=== PATIENT | female | born 1950 ===

== ENCOUNTER 2016-12-19 12:28 | Day surgery (SDC) | payer MEDICARE ==
[2016-12-19 13:06] VITALS: BMI 28.5
--- NOTE | 2016-12-19 13:16 | CP.SDSHP ---
Same Day Surgery H & P - History Proposed Procedure: colonoscopy - Previous Medical/Surgical History Cardiac: Hypertension Endocrine/Metabolic: Diabetes - Allergies Allergies: Allergies No Known Allergies Allergy (Verified 12/19/16 13:05) - Date & Time Date: 12/19/16 Time: 13:16 Short Stay Discharge - Short Stay Discharge Admitting Diagnosis/Reason for Visit: SCREENING Disposition: HOME/ ROUTINE
[2016-12-19] MEDS ORDERED: Lidocaine Hydrochloride 5 ML INJ ONE (14:58)
[2016-12-19] MEDS ORDERED: Propofol 10 mg/ml Inj (20 ML) ONE (14:58)
[2016-12-19 15:58] VITALS: TEMP 97.8
[2016-12-19 15:59] VITALS: O2SAT 100
[2016-12-19 16:37] VITALS: PULSE 78
[2016-12-19 16:38] VITALS: BP 128/68; RESP 14
== END 2016-12-19 16:25 | disposition home or self-care (01) ==
LOC: C.ENDO 12:28
PROVIDERS: ATTEND Colon & Rectal Surgery
DX: Z12.11 Encounter for screening for malignant neoplasm of colon (principal); K64.8 Other hemorrhoids; I10 Essential (primary) hypertension; E11.9 Type 2 diabetes mellitus without complications
CPT/HCPCS: 45378; 82948; J2704

== ENCOUNTER 2017-10-30 01:07 | Emergency (ER) | payer MEDICARE ==
[2017-10-30 01:07] VITALS: BMI 28.5
--- NOTE | 2017-10-30 01:36 | C.PDOC ---
History Of Present Illness 66 year old female presents to the ED for evaluation of headache and feeling nervous earlier today. Patient reports that her blood pressure is high. She denies fever, chills. Chief Complaint (Nursing): High Blood Pressure History Per: Patient History/Exam Limitations: no limitations Onset/Duration Of Symptoms: Hrs Current Symptoms Are (Timing): Still Present Additional History Per: Patient Past Medical History Reviewed: Historical Data, Nursing Documentation, Vital Signs Vital Signs: Last Vital Signs Temp 98 F 10/30/17 01:49 Pulse 68 10/30/17 01:49 Resp 19 10/30/17 01:49 BP 116/70 10/30/17 01:49 Pulse Ox 100 10/30/17 01:51 - Medical History PMH: Anemia, Gastritis, HTN, Hypercholesterolemia Denies: Fractures, Chronic Kidney Disease Surgical History: No Surg Hx Family History: States: Unknown Family Hx - Social History Hx Alcohol Use: No Hx Substance Use: No Review Of Systems Constitutional: Positive for: Other (feeling nervous, high blood pressure ) Neurological: Positive for: Headache Physical Exam - Physical Exam Appears: Non-toxic, No Acute Distress, Other (nervous ) Skin: Normal Color, Warm, Dry Head: Tenderness (mild, to posterior scalp ) Eye(s): bilateral: Normal Inspection Oral Mucosa: Moist Neck: Supple Chest: Symmetrical, No Deformity, No Tenderness Cardiovascular: Rhythm Regular, No Murmur Respiratory: Normal Breath Sounds, No Rales, No Rhonchi, No Wheezing Extremity: Normal ROM, Capillary Refill (less than 2 seconds ) Neurological/Psych: Oriented x3, Normal Speech, Normal Cognition, Other (no focal deficits ) Gait: Steady ED Course And Treatment - Laboratory Results Result Diagrams: 10/30/17 01:48 10/30/17 01:48 O2 Sat by Pulse Oximetry: 100 (on RA) Pulse Ox Interpretation: Normal Progress Note: Bloodwork ordered and reviewed. Ativan IVP and Toradol IVP administered. Patient's vitals have improved to 138/70. Disposition - Disposition Referrals: Andrew Grossman MD [Family Provider] - Disposition Time: 02:30 Condition: STABLE Forms: [facility] (Bhutanese) - Clinical Impression Clinical Impression: Hypertension - Scribe Statement The provider has reviewed the documentation as recorded by the Scribe (Mame Gaytan) Provider Attestation: All medical record entries made by the Scribe were at my direction and personally dictated by me. I have reviewed the chart and agree that the record accurately reflects my personal performance of the history, physical exam, medical decision making, and the department course for this patient. I have also personally directed, reviewed, and agree with the discharge instructions and disposition.
[2017-10-30 01:51] LABS: BASO # 0.1 K/uL (0.0-0.2); BASO % 0.8 % (0.0-2.0); EOS # 0.2 K/uL (0.0-0.7); EOS % 3.1 % (0.0-4.0); HEMOGLOBIN 12.5 g/dL (11.0-16.0); LYMPH # 3.6 K/uL (1.0-4.3); LYMPH % 50.3 % (20.0-40.0); MEAN CELL VOLUME 89.1 fL (81.0-99.0); MEAN CORPUSCULAR HEMOGLOBIN 30.2 pg (27.0-31.0); MEAN CORPUSCULAR HGB CONC 33.9 g/dL (33.0-37.0); MEAN PLATELET VOLUME 8.3 fL (7.2-11.7); MONO # 0.4 K/uL (0.0-0.8); MONO % 6.2 % (0.0-10.0); NEUT # 2.8 K/uL (1.8-7.0); NEUT % 39.6 % (50.0-75.0); RBC 4.15 Mil/uL (3.80-5.20); RED CELL DISTRIBUTION WIDTH 13.5 % (11.5-14.5); WHITE BLOOD COUNT 7.1 K/uL (4.8-10.8)
[2017-10-30 02:03] LABS: ALB/GLOB RATIO 1.2 (1.0-2.1); ALT/SGPT 29 U/L (9-52); AST/SGOT 28 U/L (14-36); BLOOD UREA NITROGEN 20 mg/dL (7-17); CALCIUM 9.4 mg/dl (8.6-10.4); GFR AFRICAN-AMERICAN > 60; GFR NON-AFRICAN AMERICAN > 60
[2017-10-30 02:46] VITALS: BP 112/65; PULSE 84; RESP 18; TEMP 97.7; O2SAT 99
== END 2017-10-30 02:48 | disposition home or self-care (01) ==
LOC: SUPCPDRO 01:07 → C.ER 01:07
DX: I10 Essential (primary) hypertension (principal)
CPT/HCPCS: 80053; 85025; 96374; 96375; 99284; J1885; J2060

== ENCOUNTER 2017-11-04 17:53 | Emergency (ER) | payer MEDICARE ==
[2017-11-04 17:53] VITALS: BMI 28.5
--- NOTE | 2017-11-04 18:24 | C.PDOC ---
History Of Present Illness 67 y/o female presents to the ED complaining of palpitations and anxiety, onset this morning. She was seen here on 10/30 at which time work-up was negative. Of note, patient was started on Lexapro 2 days ago with good compliance. She reports having episodes of anxiety with palpitations in the past. Patient is concerned that her Lexapro dose is not improving her anxiety. Otherwise she denies any chest pain, SOB, dizziness, weakness, numbness, visual changes, or headaches. Time Seen by Provider: 11/04/17 18:07 Chief Complaint (Nursing): Palpitations History Per: Patient History/Exam Limitations: no limitations Onset/Duration Of Symptoms: Hrs Current Symptoms Are (Timing): Still Present Associated Symptoms: Anxiety Past Medical History Reviewed: Historical Data, Nursing Documentation, Vital Signs Vital Signs: Last Vital Signs Temp 99.3 F 11/04/17 18:30 Pulse 74 11/04/17 18:30 Resp 18 11/04/17 18:30 BP 137/70 11/04/17 18:30 Pulse Ox 100 11/04/17 18:30 - Medical History PMH: Anemia, Anxiety, Gastritis, HTN, Hypercholesterolemia Denies: Fractures, Chronic Kidney Disease Surgical History: Other Surgeries: Hysterectomy, Bilateral knee surgery Family History: States: Unknown Family Hx - Social History Hx Alcohol Use: No Hx Substance Use: No Review Of Systems Except As Marked, All Systems Reviewed And Found Negative. Cardiovascular: Positive for: Palpitations. Negative for: Chest Pain Respiratory: Negative for: Shortness of Breath Gastrointestinal: Negative for: Nausea, Vomiting Neurological: Negative for: Weakness, Numbness, Headache, Dizziness Psych: Positive for: Anxiety Physical Exam - Physical Exam Appears: Well (appears calm, relaxed), Non-toxic, No Acute Distress Skin: Normal Color, Warm, Dry Head: Atraumatic, Normacephalic Eye(s): bilateral: Normal Inspection, PERRL, EOMI Nose: Normal Oral Mucosa: Moist Neck: Normal ROM, Supple Chest: Symmetrical Cardiovascular: Rhythm Regular, No Murmur Respiratory: Normal Breath Sounds, No Accessory Muscle Use, No Rales, No Rhonchi , No Wheezing Gastrointestinal/Abdominal: Soft, No Tenderness, No Distention Extremity: Bilateral: Atraumatic, No Pedal Edema, Normal Color And Temperature, Normal ROM Pulses: Left Dorsalis Pedis: Normal, Right Dorsalis Pedis: Normal Neurological/Psych: Oriented x3, Normal Speech, Other (No focal deficits) ED Course And Treatment ECG: Interpreted By Me ECG Rhythm: Sinus Rhythm ECG Interpretation: Normal O2 Sat by Pulse Oximetry: 100 (RA) Pulse Ox Interpretation: Normal Medical Decision Making Medical Decision Making: Plan: --EKG Pt counseled regarding normal EKG study. Clinical Impression: anxiety, palpitations, eval for same 10/30 wnl started Lexapro 2 days ago- surprised the lifelong anxiety is not yet resolved. Educated. Declines further w/u and benzo's for PRN Disposition Doctor Will See Patient In The: Office Counseled Patient/Family Regarding: Studies Performed, Diagnosis - Disposition Referrals: Andrew Grossman MD [Medical Doctor] - Disposition: HOME/ ROUTINE Disposition Time: 18:24 Condition: GOOD Additional Instructions: sigue santiago Lexapro diario [facility] 2-4 semanas hasta mara santiago effecto EKG normal hoy Sigue con santiago medico. Instructions: Anxiety, Adult (DC), Palpitations (DC) Forms: [facility] (Belarusian) Print Language: SAUDI ARABIAN - POA Present On Arrival: None - Clinical Impression Clinical Impression: Palpitations, Anxiety - Scribe Statement The provider has reviewed the documentation as recorded by the Scribe (Asiya Torres) Provider Attestation: All medical record entries made by the Scribe were at my direction and personally dictated by me. I have reviewed the chart and agree that the record accurately reflects my personal performance of the history, physical exam, medical decision making, and the department course for this patient. I have also personally directed, reviewed, and agree with the discharge instructions and disposition.
[2017-11-04 18:30] VITALS: BP 137/70; PULSE 74; RESP 18; TEMP 99.3
[2017-11-04 20:21] VITALS: O2SAT 100
== END 2017-11-04 18:41 | disposition home or self-care (01) ==
LOC: C.ER 17:53
DX: F41.9 Anxiety disorder, unspecified (principal); R00.2 Palpitations; I10 Essential (primary) hypertension